=== PATIENT | female | born 1985 | race American Indian/Alaskan Native ===

== ENCOUNTER 2016-07-08 15:25 | Inpatient (IN) | payer SELFPAY ==
[2016-07-08] MEDS ORDERED: TYLENOL PO ONE (16:12)
[2016-07-08 16:29] LABS: Anion Gap 18 mmol/L; BUN/Creatinine Ratio 18.33; Blood Urea Nitrogen 11 mg/dL (7-17); Calcium 8.8 mg/dL (8.4-10.2); Carbon Dioxide 28 mmol/L (22-30); Chloride 102.3 mmol/L (98-107); Glucose 98 mg/dL (65-100); Potassium 3.8 mmol/L (3.6-5.0); Sodium 144 mmol/L (137-145)
[2016-07-08 16:35] LABS: Bacteria,Urine 1+ /HPF (Negative); Bilirubin,Urine NEG (Negative); Blood,Urine NEG (Negative); Ketones,Urine NEG (Negative); Leukocyte Esterase,Urine LG (Negative); Mucus,Urine 2+ /HPF; Nitrite,Urine NEG (Negative); Protein,Urine <15 mg/dL mg/dL (Negative)
[2016-07-08 16:40] LABS: Hematocrit 32.2 % (30.3-42.9); Hemoglobin 10.3 gm/dl (10.1-14.3); Mean Corpuscular HGB Conc 32 % (30-34); Mean Corpuscular Hemoglobin 28 pg (28-32); Mean Corpuscular Volume 88 fl (79-97); Platelet Count 338 K/mm3 (140-440); Red Blood Count 3.65 M/mm3 (3.65-5.03); Red Cell Distribution Width 14.4 % (13.2-15.2); White Blood Count 4.8 K/mm3 (4.5-11.0)
[2016-07-08 17:46] LABS: Basophils % (Manual) 0 % (0.0-1.8); Blastocytes % (Manual) 0 %; Eosinophils % (Manual) 0 % (0.0-4.3)
[2016-07-08 17:47] LABS: Anisocytosis 1+; Hypochromasia 1+; Ovalocytes 1+
[2016-07-08 17:48] LABS: Diff Status Complete; Platelet Estimate Consistent w Auto; Polychromasia Few
--- NOTE | 2016-07-08 20:30 | XRay Report ---
FINAL REPORT PROCEDURE: XR CHEST ROUTINE 2V TECHNIQUE: Two views of the chest are obtained HISTORY: coughing, cp, sob COMPARISON: No prior studies are available for comparison. FINDINGS: Postoperative changes are seen in the right yoon thorax. Mild patchy densities are seen in the left lingula and right middle lobe that may be pneumonia. No pleural effusion or pneumothorax is seen. Heart is normal in size. IMPRESSION: Likely mild pneumonia is seen in the right middle lobe and left lingula. Continued x-ray followup to document resolution is recommended.
[2016-07-08] MEDS ORDERED: NACL 0.9% 1000 ML IV ONE (20:43)
[2016-07-08] MEDS ORDERED: ROCEPHIN/NS 1 GM/50 ML 1 GM/50 ML BAG IV ONE (20:43)
[2016-07-08] MEDS ORDERED: ZITHROMAX PO ONE (20:43)
--- NOTE | 2016-07-08 20:44 | Emergency Department Report ---
ED General Adult HPI - General Chief complaint: Chest Pain Stated complaint: BAD COUGH,CHEST AND NECK PAIN Time Seen by Provider: 07/08/16 20:34 Source: patient, RN notes reviewed Mode of arrival: Ambulatory Limitations: No Limitations - History of Present Illness Initial comments: This is a 30-year-old female. She is previously unknown to me. She does not have a local primary care doctor. She has a past medical history of HIV. She does not have a local infectious disease specialist. She does not know her CD4 count. She does not know her viral load. She is not currently on active retroviral therapy. The patient presents to the ER complaining of shortness of breath, cough, chest and neck pain. This is been going on for a month. It is getting worse. Chest pain is central. It does not radiate to the back, arms and neck. There is no leg pain. There is no leg swelling. No recent trips greater than 4 hours. No recent hospital admissions. Patient also complains of "sinus pressure." -: Gradual, week(s) Location: neck, chest Severity scale (0 -10): 0 Quality: aching Consistency: intermittent Improves with: rest Worsens with: movement Associated Symptoms: chest pain, cough, fever/chills, loss of appetite, shortness of breath, weakness - Related Data Home Medications Medication Instructions Recorded Confirmed Last Taken Azithromycin 600 mg PO 1XW 07/08/16 07/08/16 Unknown Fluconazole 100 mg PO DAILY 07/08/16 07/08/16 Unknown Nystatin SUSP 100,000 1000units PO DAILY 07/08/16 07/08/16 Unknown Stribild Tablet 300 mg PO DAILY 07/08/16 07/08/16 Unknown Previous Rx's Medication Instructions Recorded Last Taken Type Sulfamethoxazole/Trimethoprim 1 each PO Q12HR #20 tablet 07/10/16 Unknown Rx [Bactrim DS TAB] guaiFENesin [Robitussin] 200 mg PO Q4H PRN #30 oral.liqd 07/10/16 Unknown Rx oxyCODONE /ACETAMINOPHEN [Percocet 1 tab PO Q6H PRN #30 tablet 07/10/16 Unknown Rx 5/325 mg] Allergies Allergy/AdvReac Type Severity Reaction Status Date / Time No Known Allergies Allergy Verified 07/08/16 15:41 ED Review of Systems ROS: Stated complaint: BAD COUGH,CHEST AND NECK PAIN Other details as noted in HPI Constitutional: fever, malaise Eyes: denies: vision change ENT: denies: epistaxis Respiratory: cough, shortness of breath Cardiovascular: chest pain Gastrointestinal: as per HPI. denies: vomiting Genitourinary: as per HPI. denies: dysuria Musculoskeletal: back pain Skin: denies: lesions Neurological: weakness Psychiatric: as per HPI ED Past Medical Hx - Past Medical History Hx HIV: Yes - Surgical History Past Surgical History?: No Additional Surgical History: gallstones - Social History Smoking Status: Never Smoker Substance Use Type: None - Medications Home Medications: Home Medications Medication Instructions Recorded Confirmed Last Taken Type Azithromycin 600 mg PO 1XW 07/08/16 07/08/16 Unknown History Fluconazole 100 mg PO DAILY 07/08/16 07/08/16 Unknown History Nystatin SUSP 100,000 1000units PO DAILY 07/08/16 07/08/16 Unknown History Stribild Tablet 300 mg PO DAILY 07/08/16 07/08/16 Unknown History Sulfamethoxazole/Trimethoprim 1 each PO Q12HR #20 tablet 07/10/16 Unknown Rx [Bactrim DS TAB] guaiFENesin [Robitussin] 200 mg PO Q4H PRN #30 oral.liqd 07/10/16 Unknown Rx oxyCODONE /ACETAMINOPHEN [Percocet 1 tab PO Q6H PRN #30 tablet 07/10/16 Unknown Rx 5/325 mg] ED Physical Exam - General Limitations: No Limitations General appearance: alert, in no apparent distress - Head Head exam: Present: atraumatic, normocephalic - Eye Eye exam: Present: normal appearance, EOMI. Absent: nystagmus - ENT ENT exam: Present: normal exam, normal orophraynx, mucous membranes moist, normal external ear exam - Neck Neck exam: Present: normal inspection, full ROM. Absent: tenderness - Respiratory Respiratory exam: Present: wheezes, rhonchi. Absent: respiratory distress - Cardiovascular Cardiovascular Exam: Present: normal rhythm, tachycardia, normal heart sounds. Absent: systolic murmur, diastolic murmur, rubs, gallop - GI/Abdominal GI/Abdominal exam: Present: soft, normal bowel sounds. Absent: distended, tenderness, guarding, rebound, rigid, pulsatile mass - Extremities Exam Extremities exam: Present: normal inspection, full ROM, normal capillary refill. Absent: pedal edema, joint swelling, calf tenderness - Back Exam Back exam: Present: normal inspection, full ROM. Absent: tenderness, CVA tenderness (R), CVA tenderness (L), muscle spasm, paraspinal tenderness, vertebral tenderness - Neurological Exam Neurological exam: Present: alert, oriented X3, other (Extraocular movements intact. Tongue midline. No facial droop. Facial sensation intact to light touch in the V1, V2, V3 distribution bilaterally. 5 and 5 strength in 4 extremities.. Sensation is intact to light touch in 4 extremities.). Absent: motor sensory deficit - Psychiatric Psychiatric exam: Present: normal affect, normal mood - Skin Skin exam: Present: warm, dry, intact, normal color. Absent: rash ED Course Vital Signs 07/08/16 07/08/16 07/08/16 15:45 20:06 20:14 Temperature 100 F H 98 F Pulse Rate 139 H 80 115 H Pulse Rate [ Left Radial] Respiratory 16 16 16 Rate Blood Pressure 124/79 Blood Pressure [Left Arm] Blood Pressure 108/70 108/60 [Left] O2 Sat by Pulse 94 97 96 Oximetry 07/08/16 07/08/16 23:04 23:30 Temperature 97.8 F Pulse Rate Pulse Rate [ 101 H Left Radial] Respiratory 18 Rate Blood Pressure Blood Pressure 112/72 [Left Arm] Blood Pressure [Left] O2 Sat by Pulse 97 98 Oximetry - Reevaluation(s) Reevaluation #1: 07/08/16 21:19 differential diagnosis: Pneumonia, bronchitis, sinusitis, acute coronary syndrome, costochondritis Assessment and plan: 30-year-old female with borderline hypoxia, ABG pending, x- ray the chest him straight in multilobar pneumonia, noncompliant with highly active antiretroviral therapy, borderline fever, tachycardia, borderline sepsis picture. We will treat the patient empirically with 30 mL/kg of IV fluid, ceftriaxone/ azithromycin for presumed community-acquired pneumonia, ABG, will lactic acid, LDH pending. Acetaminophen given. Given multilobar component, immune compromised status, abnormal vital signs, the patient is not suitable for outpatient management. The case is presented to the Hospital physician, Dr. Machado, who accepts the patient to her service. No pulmonary embolus or DVT risk factors, low risk by well's criteria, low risk by KARISHMA score, low risk by heart score ED Medical Decision Making - Lab Data Result diagrams: 07/09/16 04:00 07/09/16 02:30 Vital Signs 07/08/16 07/08/16 07/08/16 15:45 20:06 20:14 Temperature 100 F H 98 F Pulse Rate 139 H 80 115 H Respiratory 16 16 16 Rate Blood Pressure 124/79 Blood Pressure 108/70 108/60 [Left] O2 Sat by Pulse 94 97 96 Oximetry Lab Results 07/08/16 07/08/16 07/08/16 Range/Units 15:58 15:58 16:17 WBC 4.8 (4.5-11.0) K/mm3 RBC 3.65 (3.65-5.03) M/mm3 Hgb 10.3 (10.1-14.3) gm/dl Hct 32.2 (30.3-42.9) % MCV 88 (79-97) fl MCH 28 (28-32) pg MCHC 32 (30-34) % RDW 14.4 (13.2-15.2) % Plt Count 338 (140-440) K/mm3 Add Manual Diff Complete Total Counted 100 Seg Neuts % (Manual) 59.0 (40.0-70.0) % Band Neutrophils % 12.0 % Lymphocytes % (Manual) 15.0 (13.4-35.0) % Reactive Lymphs % (Man) 1.0 % Monocytes % (Manual) 13.0 H (0.0-7.3) % Eosinophils % (Manual) 0 (0.0-4.3) % Basophils % (Manual) 0 (0.0-1.8) % Metamyelocytes % 0 % Myelocytes % 0 % Promyelocytes % 0 % Blast Cells % 0 % Nucleated RBC % Not Reportable Seg Neutrophils # Man 2.8 (1.8-7.7) K/mm3 Band Neutrophils # 0.6 K/mm3 Lymphocytes # (Manual) 0.7 L (1.2-5.4) K/mm3 Abs React Lymphs (Man) 0.0 K/mm3 Monocytes # (Manual) 0.6 (0.0-0.8) K/mm3 Eosinophils # (Manual) 0.0 (0.0-0.4) K/mm3 Basophils # (Manual) 0.0 (0.0-0.1) K/mm3 Metamyelocytes # 0.0 K/mm3 Myelocytes # 0.0 K/mm3 Promyelocytes # 0.0 K/mm3 Blast Cells # 0.0 K/mm3 WBC Morphology Not Reportable Hypersegmented Neuts Not Reportable Hyposegmented Neuts Not Reportable Hypogranular Neuts Not Reportable Smudge Cells Not Reportable Toxic Granulation Not Reportable Toxic Vacuolation Not Reportable Dohle Bodies Not Reportable Pelger-Huet Anomaly Not Reportable [place] Rods Not Reportable Platelet Estimate Consistent w auto Clumped Platelets Not Reportable Plt Clumps, EDTA Not Reportable Large Platelets Not Reportable Giant Platelets Not Reportable Platelet Satelliting Not Reportable Plt Morphology Comment Not Reportable RBC Morphology Not Reportable Dimorphic RBCs Not Reportable Polychromasia Few Hypochromasia 1+ Poikilocytosis Not Reportable Anisocytosis 1+ Microcytosis Not Reportable Macrocytosis Not Reportable Spherocytes Not Reportable Pappenheimer Bodies Not Reportable Sickle Cells Not Reportable Target Cells Not Reportable Tear Drop Cells Not Reportable Ovalocytes 1+ Helmet Cells Not Reportable [place] Bodies Not Reportable [place] Rings Not Reportable [place] Cells Not Reportable Bite Cells Not Reportable Crenated Cell Not Reportable Elliptocytes Not Reportable Acanthocytes (Spur) Not Reportable Rouleaux Not Reportable Hemoglobin C Crystals Not Reportable Schistocytes Not Reportable Malaria parasites Not Reportable Alan Bodies Not Reportable Hem Pathologist Commnt No Sodium 144 (137-145) mmol/L Potassium 3.8 (3.6-5.0) mmol/L Chloride 102.3 (98-107) mmol/L Carbon Dioxide 28 (22-30) mmol/L Anion Gap 18 mmol/L BUN 11 (7-17) mg/dL Creatinine 0.6 L (0.7-1.2) mg/dL Estimated GFR > 60 ml/min BUN/Creatinine Ratio 18.33 % Glucose 98 (65-100) mg/dL Calcium 8.8 (8.4-10.2) mg/dL Troponin T < 0.010 (0.00-0.029) ng/mL Urine Color Yellow (Yellow) Urine Turbidity Clear (Clear) Urine pH 6.0 (5.0-7.0) Ur Specific [place] 1.026 (1.003-1.030) Urine Protein <15 mg/dl (Negative) mg/dL Urine Glucose (UA) Neg (Negative) mg/dL Urine Ketones Neg (Negative) mg/dL Urine Blood Neg (Negative) Urine Nitrite Neg (Negative) Urine Bilirubin Neg (Negative) Urine Urobilinogen 4.0 (<2.0) mg/dL Ur Leukocyte Esterase Lg (Negative) Urine WBC (Auto) 13.0 H (0.0-6.0) /HPF Urine RBC (Auto) 12.0 (0.0-6.0) /HPF U Epithel Cells (Auto) 6.0 (0-13.0) /HPF Urine Bacteria (Auto) 1+ (Negative) /HPF Urine Mucus 2+ /HPF Urine HCG, Qual Negative (Negative) 07/08/16 Range/Units 18:44 WBC (4.5-11.0) K/mm3 RBC (3.65-5.03) M/mm3 Hgb (10.1-14.3) gm/dl Hct (30.3-42.9) % MCV (79-97) fl MCH (28-32) pg MCHC (30-34) % RDW (13.2-15.2) % Plt Count (140-440) K/mm3 Add Manual Diff Total Counted Seg Neuts % (Manual) (40.0-70.0) % Band Neutrophils % % Lymphocytes % (Manual) (13.4-35.0) % Reactive Lymphs % (Man) % Monocytes % (Manual) (0.0-7.3) % Eosinophils % (Manual) (0.0-4.3) % Basophils % (Manual) (0.0-1.8) % Metamyelocytes % % Myelocytes % % Promyelocytes % % Blast Cells % % Nucleated RBC % Seg Neutrophils # Man (1.8-7.7) K/mm3 Band Neutrophils # K/mm3 Lymphocytes # (Manual) (1.2-5.4) K/mm3 Abs React Lymphs (Man) K/mm3 Monocytes # (Manual) (0.0-0.8) K/mm3 Eosinophils # (Manual) (0.0-0.4) K/mm3 Basophils # (Manual) (0.0-0.1) K/mm3 Metamyelocytes # K/mm3 Myelocytes # K/mm3 Promyelocytes # K/mm3 Blast Cells # K/mm3 WBC Morphology Hypersegmented Neuts Hyposegmented Neuts Hypogranular Neuts Smudge Cells Toxic Granulation Toxic Vacuolation Dohle Bodies Pelger-Huet Anomaly [place] Rods Platelet Estimate Clumped Platelets Plt Clumps, EDTA Large Platelets Giant Platelets Platelet Satelliting Plt Morphology Comment RBC Morphology Dimorphic RBCs Polychromasia Hypochromasia Poikilocytosis Anisocytosis Microcytosis Macrocytosis Spherocytes Pappenheimer Bodies Sickle Cells Target Cells Tear Drop Cells Ovalocytes Helmet Cells [place] Bodies [place] Rings [place] Cells Bite Cells Crenated Cell Elliptocytes Acanthocytes (Spur) Rouleaux Hemoglobin C Crystals Schistocytes Malaria parasites Alan Bodies Hem Pathologist Commnt Sodium (137-145) mmol/L Potassium (3.6-5.0) mmol/L Chloride (98-107) mmol/L Carbon Dioxide (22-30) mmol/L Anion Gap mmol/L BUN (7-17) mg/dL Creatinine (0.7-1.2) mg/dL Estimated GFR ml/min BUN/Creatinine Ratio % Glucose (65-100) mg/dL Calcium (8.4-10.2) mg/dL Troponin T < 0.010 (0.00-0.029) ng/mL Urine Color (Yellow) Urine Turbidity (Clear) Urine pH (5.0-7.0) Ur Specific [place] (1.003-1.030) Urine Protein (Negative) mg/dL Urine Glucose (UA) (Negative) mg/dL Urine Ketones (Negative) mg/dL Urine Blood (Negative) Urine Nitrite (Negative) Urine Bilirubin (Negative) Urine Urobilinogen (<2.0) mg/dL Ur Leukocyte Esterase (Negative) Urine WBC (Auto) (0.0-6.0) /HPF Urine RBC (Auto) (0.0-6.0) /HPF U Epithel Cells (Auto) (0-13.0) /HPF Urine Bacteria (Auto) (Negative) /HPF Urine Mucus /HPF Urine HCG, Qual (Negative) - EKG Data -: EKG Interpreted by Sd EKG shows normal: sinus rhythm Rate: tachycardia - EKG Data When compared to previous EKG there are: previous EKG unavailable 07/08/16 21:21 sinus tachycardia, 134 beats per minute, poor R wave progression , nonspecific T-wave abnormality, not morphologically consistent with stemi - Radiology Data Radiology results: report reviewed, image reviewed xr chest: multilobar pneumonia Critical care attestation.: If time is entered above; I have spent that time in minutes in the direct care of this critically ill patient, excluding procedure time. ED Disposition Clinical Impression: Pneumonia Qualifiers: Aspiration pneumonia type: unspecified Laterality: bilateral Lung location: unspecified part of lung Disposition: OP ADMITTED IP TO THIS HOSP Is pt being admited?: Yes Does the pt Need Aspirin: Yes Condition: Good
[2016-07-08 21:29] LABS: ISTAT Base Excess -1; ISTAT HCO3 23.6; ISTAT PCO2 37.1 (35-45); ISTAT PH 7.413 (7.35-7.45); ISTAT PO2 87 (80-105); ISTAT SO2 97; ISTAT TCO2 25
[2016-07-08] MEDS ORDERED: DULCOLAX PR PRN (21:50)
[2016-07-08] MEDS ORDERED: ZOFRAN IV PRN (21:50)
[2016-07-08] MEDS ORDERED: MILK OF MAGNESIA PO PRN (21:50)
[2016-07-08] MEDS ORDERED: TYLENOL PO PRN (21:50)
--- NOTE | 2016-07-08 21:56 | History and Physical Report ---
History of Present Illness Date of examination: 07/08/16 History of present illness: 30 year old woman with history of HIV, unknown CD4 count, off medications for 1 year comes emergency room with complaint of cough productive of green-yellow phlegm for one month, shortness of breath, fever Patient denies chest pain, palpitation abdominal pain, hematochezia, dysuria, frequency, focal weakness, dysarthria, fever chills, polydipsia polyuria, hot or cold intolerance, easy bruisability, or rash or bleeding from mucosal membrane, rhinorrhea, epistaxis, earache, tinnitus, blurry vision, eye discharge , anxiety, depression. Other review of systems negative PAST SURGICAL HISTORY: None SOCIAL HISTORY: Denies alcohol, tobacco, drugs FAMILY HISTORY: Hypertension Medications and Allergies Allergies Allergy/AdvReac Type Severity Reaction Status Date / Time No Known Allergies Allergy Verified 07/08/16 15:41 Home Medications Medication Instructions Recorded Confirmed Last Taken Type Azithromycin 600 mg PO 1XW 07/08/16 07/08/16 Unknown History Fluconazole 100 mg PO DAILY 07/08/16 07/08/16 Unknown History Nystatin SUSP 100,000 1000units PO DAILY 07/08/16 07/08/16 Unknown History Stribild Tablet 300 mg PO DAILY 07/08/16 07/08/16 Unknown History Active Meds: Active Medications Acetaminophen (Tylenol) 650 mg PO Q4H PRN PRN Reason: Pain MILD(1-3)/Fever >100.5/[place]OR[place]INO Bisacodyl (Dulcolax) 10 mg HI QDAY PRN PRN Reason: Constipation unrelieved by MOM Enoxaparin Sodium (Lovenox) 40 mg SUB-Q QDAY [facility] Azithromycin 500 mg/ Sodium (Chloride) 250 mls @ 250 mls/hr IV Q24HR SOSA PRN Reason: Protocol Ceftriaxone Sodium (Rocephin/Ns 1 Gm/50 Ml) 1 gm in 50 mls @ 100 mls/hr IV Q24HR SOSA PRN Reason: Protocol Magnesium Hydroxide (Milk Of Magnesia) 30 ml PO Q4H PRN PRN Reason: Constipation Ondansetron HCl (Zofran) 4 mg IV Q8H PRN PRN Reason: N/V unrelieved by Reglan Oxycodone/Acetaminophen (Percocet 5/325) 1 tab PO Q6H PRN PRN Reason: Pain, Moderate (4-6) Exam - Physical Exam Narrative exam: Gen. appearance: Patient lying in bed, no apparent distress HEENT: Normocephalic, atraumatic, pupils equally round and reactive to light, extraocular movement intact, and no sclericterus,. No JVD or thyromegaly or nodule,neck supple, no carotid bruit ,mucous membranes moist, no exudate or erythema Heart: S1, S2, regular rate and rhythm Lungs: Clear to auscultation bilaterally, breathing comfortable Abdomen: Positive bowel sounds, nontender, nondistended, no organomegaly Extremity: No edema, cyanosis, clubbing Skin: No rash, nodules, warm, dry Neuro: Oriented 3, cranial nerves II-12 intact, speech is fluent, motor and sensory intact - Constitutional Vitals: Temp Pulse Resp BP Pulse Ox 98 F 115 H 16 108/60 96 07/08/16 20:14 07/08/16 20:14 07/08/16 20:14 07/08/16 20:14 07/08/16 20:14 Results - Labs CBC & Chem 7: 07/09/16 04:00 07/09/16 02:30 Labs: Abnormal lab results 07/08/16 07/08/16 07/08/16 Range/Units 15:58 15:58 16:17 Monocytes % (Manual) 13.0 H (0.0-7.3) % Lymphocytes # (Manual) 0.7 L (1.2-5.4) K/mm3 Creatinine 0.6 L (0.7-1.2) mg/dL Urine WBC (Auto) 13.0 H (0.0-6.0) /HPF - Imaging and Cardiology Chest x-ray: image reviewed Assessment and Plan Sepsis Community-acquired pneumonia UTI HIV Admit to medicine Start IV Rocephin, azithromycin Follow cultures, start DVT prophylaxis
[2016-07-09] MEDS ORDERED: ROBITUSSIN PO PRN (00:01)
[2016-07-09] MEDS: PERCOCET 5/325 PO PRN ×2 (01:53→20:15)
[2016-07-09 02:48] LABS: Hematocrit 30.7 % (30.3-42.9); Hemoglobin 9.5 gm/dl (10.1-14.3); Mean Corpuscular HGB Conc 31 % (30-34); Mean Corpuscular Hemoglobin 28 pg (28-32); Mean Corpuscular Volume 89 fl (79-97); Platelet Count 266 K/mm3 (140-440); Red Blood Count 3.44 M/mm3 (3.65-5.03); Red Cell Distribution Width 14.5 % (13.2-15.2); White Blood Count 3.3 K/mm3 (4.5-11.0)
[2016-07-09 03:00] LABS: Blood Urea Nitrogen 9 mg/dL (7-17); Calcium 7.6 mg/dL (8.4-10.2); Carbon Dioxide 21 mmol/L (22-30); Chloride 105.4 mmol/L (98-107); Glucose 94 mg/dL (65-100); Potassium 3.4 mmol/L (3.6-5.0); Sodium 139 mmol/L (137-145)
[2016-07-09 03:03] LABS: Anion Gap 16 mmol/L
[2016-07-09 04:02] LABS: Basophils % (Manual) 0 % (0.0-1.8); Blastocytes % (Manual) 0 %
[2016-07-09 04:04] LABS: Anisocytosis 1+; Diff Status Complete
--- NOTE | 2016-07-09 08:51 | Progress Note ---
Assessment and Plan Assessment and plan: 30-year-old woman with past medical history of HIV, unknown viral load and CD4 counts. Presents with coughs productive sputum and subjective fevers Sepsis continue abx, continue sepsis protocol, due to CAP and UTI Community-acquired pneumonia IV abx UTI fup urine cx, iv abx HIV obtain cd4 count and viral load she is not on retrovirals, denies AIDs defining illness History Interval history: She continues to have productive cough, she feels better, sputum is thick and yellow. Denies fever overnight Hospitalist Physical - Physical exam Narrative exam: General: Patient appears well in no distress HEENT: MMM, EOMI cardiac: S1-S2 heard lungs: Crackles right lower lung abdomen: soft, nontender, nondistended bowel sounds positive extremities: no edema clubbing or cyanosis Skin: no rash or lesion Neuro: no focal deficit Psych: appropriate behavior and mood, cognition intact - Constitutional Vitals: Temp Pulse Resp BP Pulse Ox 98 F 100 H 18 104/64 99 07/09/16 08:00 07/09/16 08:00 07/09/16 08:00 07/09/16 08:00 07/09/16 08:00 Results - Labs CBC & Chem 7: 07/09/16 04:00 07/09/16 02:30 Labs: Laboratory Last Values WBC 3.3 K/mm3 (4.5-11.0) L 07/09/16 04:00 RBC 3.44 M/mm3 (3.65-5.03) L 07/09/16 04:00 Hgb 9.5 gm/dl (10.1-14.3) L 07/09/16 04:00 Hct 30.7 % (30.3-42.9) 07/09/16 04:00 MCV 89 fl (79-97) 07/09/16 04:00 MCH 28 pg (28-32) 07/09/16 04:00 MCHC 31 % (30-34) 07/09/16 04:00 RDW 14.5 % (13.2-15.2) 07/09/16 04:00 Plt Count 266 K/mm3 (140-440) 07/09/16 04:00 Add Manual Diff Complete 07/09/16 04:00 Total Counted 100 07/09/16 04:00 Seg Neuts % (Manual) 80.0 % (40.0-70.0) H 07/09/16 04:00 Band Neutrophils % 1.0 % 07/09/16 04:00 Lymphocytes % (Manual) 10.0 % (13.4-35.0) L 07/09/16 04:00 Reactive Lymphs % (Man) 0 % 07/09/16 04:00 Monocytes % (Manual) 6.0 % (0.0-7.3) 07/09/16 04:00 Eosinophils % (Manual) 1.0 % (0.0-4.3) 07/09/16 04:00 Basophils % (Manual) 0 % (0.0-1.8) 07/09/16 04:00 Metamyelocytes % 1.0 % 07/09/16 04:00 Myelocytes % 1.0 % 07/09/16 04:00 Promyelocytes % 0 % 07/09/16 04:00 Blast Cells % 0 % 07/09/16 04:00 Nucleated RBC % Not Reportable 07/09/16 04:00 Seg Neutrophils # Man 2.6 K/mm3 (1.8-7.7) 07/09/16 04:00 Band Neutrophils # 0.0 K/mm3 07/09/16 04:00 Lymphocytes # (Manual) 0.3 K/mm3 (1.2-5.4) L 07/09/16 04:00 Abs React Lymphs (Man) 0.0 K/mm3 07/09/16 04:00 Monocytes # (Manual) 0.2 K/mm3 (0.0-0.8) 07/09/16 04:00 Eosinophils # (Manual) 0.0 K/mm3 (0.0-0.4) 07/09/16 04:00 Basophils # (Manual) 0.0 K/mm3 (0.0-0.1) 07/09/16 04:00 Metamyelocytes # 0.0 K/mm3 07/09/16 04:00 Myelocytes # 0.0 K/mm3 07/09/16 04:00 Promyelocytes # 0.0 K/mm3 07/09/16 04:00 Blast Cells # 0.0 K/mm3 07/09/16 04:00 WBC Morphology Not Reportable 07/09/16 04:00 Hypersegmented Neuts Not Reportable 07/09/16 04:00 Hyposegmented Neuts Not Reportable 07/09/16 04:00 Hypogranular Neuts Not Reportable 07/09/16 04:00 Smudge Cells Not Reportable 07/09/16 04:00 Toxic Granulation Not Reportable 07/09/16 04:00 Toxic Vacuolation Not Reportable 07/09/16 04:00 Dohle Bodies Not Reportable 07/09/16 04:00 Pelger-Huet Anomaly Not Reportable 07/09/16 04:00 Bronwyn Rods Not Reportable 07/09/16 04:00 Platelet Estimate Appears normal 07/09/16 04:00 Clumped Platelets Not Reportable 07/09/16 04:00 Plt Clumps, EDTA Not Reportable 07/09/16 04:00 Large Platelets Not Reportable 07/09/16 04:00 Giant Platelets Not Reportable 07/09/16 04:00 Platelet Satelliting Not Reportable 07/09/16 04:00 Plt Morphology Comment Not Reportable 07/09/16 04:00 RBC Morphology Not Reportable 07/09/16 04:00 Dimorphic RBCs Not Reportable 07/09/16 04:00 Polychromasia Not Reportable 07/09/16 04:00 Hypochromasia Not Reportable 07/09/16 04:00 Poikilocytosis Not Reportable 07/09/16 04:00 Anisocytosis 1+ 07/09/16 04:00 Microcytosis Not Reportable 07/09/16 04:00 Macrocytosis Not Reportable 07/09/16 04:00 Spherocytes Not Reportable 07/09/16 04:00 Pappenheimer Bodies Not Reportable 07/09/16 04:00 Sickle Cells Not Reportable 07/09/16 04:00 Target Cells Not Reportable 07/09/16 04:00 Tear Drop Cells Not Reportable 07/09/16 04:00 Ovalocytes Not Reportable 07/09/16 04:00 Helmet Cells Not Reportable 07/09/16 04:00 [place] Bodies Not Reportable 07/09/16 04:00 [place] Rings Not Reportable 07/09/16 04:00 [place] Cells Not Reportable 07/09/16 04:00 Bite Cells Not Reportable 07/09/16 04:00 Crenated Cell Not Reportable 07/09/16 04:00 Elliptocytes Not Reportable 07/09/16 04:00 Acanthocytes (Spur) Not Reportable 07/09/16 04:00 Rouleaux Not Reportable 07/09/16 04:00 Hemoglobin C Crystals Not Reportable 07/09/16 04:00 Schistocytes Not Reportable 07/09/16 04:00 Malaria parasites Not Reportable 07/09/16 04:00 Alan Bodies Not Reportable 07/09/16 04:00 Hem Pathologist Commnt No 07/09/16 04:00 POC ABG pH 7.413 (7.35-7.45) 07/08/16 21:22 POC ABG pCO2 37.1 (35-45) 07/08/16 21:22 POC ABG pO2 87 (80-105) 07/08/16 21:22 POC ABG HCO3 23.6 07/08/16 21:22 POC ABG Total CO2 25 07/08/16 21:22 POC ABG O2 Sat 97 07/08/16 21:22 POC ABG Base Excess -1 07/08/16 21:22 FiO2 3 % 07/08/16 21:22 Sodium 139 mmol/L (137-145) 07/09/16 02:30 Potassium 3.4 mmol/L (3.6-5.0) L 07/09/16 02:30 Chloride 105.4 mmol/L (98-107) 07/09/16 02:30 Carbon Dioxide 21 mmol/L (22-30) L D 07/09/16 02:30 Anion Gap 16 mmol/L 07/09/16 02:30 BUN 9 mg/dL (7-17) 07/09/16 02:30 Creatinine 0.4 mg/dL (0.7-1.2) L 07/09/16 02:30 Estimated GFR > 60 ml/min 07/09/16 02:30 BUN/Creatinine Ratio 22.50 % 07/09/16 02:30 Glucose 94 mg/dL (65-100) 07/09/16 02:30 Lactic Acid 0.70 mmol/L (0.7-2.0) 07/09/16 02:30 Calcium 7.6 mg/dL (8.4-10.2) L 07/09/16 02:30 Lactate Dehydrogenase 371 units/L (91-180) H 07/08/16 21:08 Troponin T < 0.010 ng/mL (0.00-0.029) 07/08/16 21:59 Urine Color Yellow (Yellow) 07/08/16 16:17 Urine Turbidity Clear (Clear) 07/08/16 16:17 Urine pH 6.0 (5.0-7.0) 07/08/16 16:17 Ur Specific [place] 1.026 (1.003-1.030) 07/08/16 16:17 Urine Protein <15 mg/dl mg/dL (Negative) 07/08/16 16:17 Urine Glucose (UA) Neg mg/dL (Negative) 07/08/16 16:17 Urine Ketones Neg mg/dL (Negative) 07/08/16 16: Urine Blood Neg (Negative) 07/08/16 16:17 Urine Nitrite Neg (Negative) 07/08/16 16:17 Urine Bilirubin Neg (Negative) 07/08/16 16:17 Urine Urobilinogen 4.0 mg/dL (<2.0) 07/08/16 16:17 Ur Leukocyte Esterase Lg (Negative) 07/08/16 16:17 Urine WBC (Auto) 13.0 /HPF (0.0-6.0) H 07/08/16 16:17 Urine RBC (Auto) 12.0 /HPF (0.0-6.0) 07/08/16 16:17 U Epithel Cells (Auto) 6.0 /HPF (0-13.0) 07/08/16 16:17 Urine Bacteria (Auto) 1+ /HPF (Negative) 07/08/16 16:17 Urine Mucus 2+ /HPF 07/08/16 16:17 Urine HCG, Qual Negative (Negative) 07/08/16 16:17
[2016-07-09] MEDS: ROCEPHIN/NS 1 GM/50 ML 1 GM/50 ML BAG IV SCH (10:18)
[2016-07-09] MEDS: LOVENOX SUB-Q SCH (10:19)
[2016-07-09] MEDS: ZITHROMAX 500 MG in NACL 0.9% 250ML 250 ML IV SCH (11:55)
--- NOTE | 2016-07-09 18:02 | Admit Criteria Form ---
Admission Criteria Documentation: PNEUMONIA, COMMUNITY ACQUIRED Clinical Indications for Admission to Inpatient Care ( Place 'X' for any and all applicable criteria): Admission is indicated for ANY ONE of the following (1)(2)(3): [ ]I. Hypoxemia indicated by ANY ONE of the following: [ ]a) Oxygen saturation less than 90% while breathing room air [ ]b) PO2 less than 60 mm Hg (8.0 kPa) while breathing room air [ ]c) Chronic lung disease with significant deterioration from baseline oxygenation [ ]II. Appropriate diagnostic testing and treatment unavailable in outpatient or recovery facility (eg,testing or infection control measures unavailable(10) [ ]III. Moderate-risk or high-risk category patients (Pneumonia Severity Index (PSI) class IV or V, or CURB-65 score of 3 or greater). [ ]IV. Outpatient treatment failure as indicated by ANY ONE of the following(9) : [ ]a) Failure to respond to antibiotic (eg, resistant organism) [ ]b) Clinically significant adverse effects from medication (eg, vomiting) [ ]c) Complications of pneumonia (eg, empyema, bacteremia) [ ]d) Significant worsening of comorbid cond necessitating inpatient care (eg, chronic heart failure) [ ]V. Intermediate-risk category patients (eg, PSI class III or CURB-65 score 2) who do not improve with initial therapy and observation. [ X]. Immunocompromised patients (eg, AIDS, chronic steroid use) at moderate or high risk based on clinical evaluation. [ ]VII. Complicated pleural effusions (eg, exudative, loculated) [ ]VIII.Hemodynamic instability [ ] IX. Altered mental status that is severe or persistent. [ ]X. Dehydration that is severe or persistent. [ ]XI. Bacteremia [ ]XII. Respiratory finding (eg. tachypnea) that do not respond to outpatient or observation care treatment Extended stay beyond goal length of stay may be needed for (20) [ ]a) Unclear diagnosis [ ]b) Pleural disease [ ]c) Severe pneumonia or treatment failure (25 [ ]d) Respiratory failure (anticipate invasive or noninvasive ventilatory support) [ ]e) Abnormal serum electrolytes (serum Na concentration less than 135 mEq/L (mmol/L) (32)(33) [ ]f) Clinically significant comorbid illness (eg, heart failure, atrial fibrillation with rapid heart rate, alcohol withdrawal, renal insufficiency)(34)(35) [ ]g) Comorbid acute exacerbation of COPD(36) [ ]h) Concomitant diagnosis of malignancy that may be associated with malnutrition, immunologic impairment, or bronchial obstruction. [ ]i) Concomitant altered mental status [ ]j) Culture-identified Gram-negative or antibiotic-resistant organism (eg, Pseudomonas, methicillin-resistant Staphylococcus aureus)(30) [ ]k) Healthcare-associated pneumonia The original [employer] content created by [employer] has been revised. The portions of the content which have been revised are identified through the use of italic text or in bold, and [facility] has neither reviewed nor approved the modified material. All other unmodified content is copyright [employer]. Please see references footnoted in the original [facility] edition 2016 Admission Criteria Met: Yes
[2016-07-10] MEDS: ROCEPHIN/NS 1 GM/50 ML 1 GM/50 ML BAG IV SCH (09:22)
[2016-07-10] MEDS: LOVENOX SUB-Q SCH (09:29)
[2016-07-10] MEDS: ZITHROMAX 500 MG in NACL 0.9% 250ML 250 ML IV SCH (10:31)
--- NOTE | 2016-07-10 12:14 | Discharge Summary ---
Providers - Providers Date of Admission: 07/08/16 21:50 Date of discharge: 07/10/16 Attending physician: JERROD CUNHA MD Primary care physician: WILL RYAN MD Hospitalization Condition: Good Hospital course: Patient 30-year-old female with HIV unknown CD4 count present with community- acquired pneumonia fever cough. Patient started on IV anabiotic since azithromycin defervesced well. Fever curve resolved to normal patient felt much better with IV anabiotic's and IV volume replacement. Patient had pneumonia of the right lower lobe due to infectious organism. Treated stable for discharge. Patient was feeling much better. Patient did not have any 80s defining illness was not on any retroviral medications blood cultures returned with no growth. Stable for discharge. We'll be discharged home with Bactrim 10 days. Disposition: DISCHARGED TO HOME OR SELFCARE - Discharge Diagnoses (1) Pneumonia Status: Acute Qualifiers: Pneumonia type: P Aspiration pneumonia type: unspecified Laterality: bilateral Lung location: unspecified part of lung Core Measure Documentation - Palliative Care Palliative Care/ Comfort Measures: Not Applicable - Core Measures Any of the following diagnoses?: none Exam - Constitutional Vitals: Temp Pulse Resp BP Pulse Ox 98.3 F 112 H 16 104/62 96 07/10/16 08:00 07/10/16 08:00 07/10/16 08:00 07/10/16 08:00 07/10/16 08:56 General appearance: Present: no acute distress, well-nourished - EENT Eyes: Present: PERRL ENT: hearing intact, clear oral mucosa - Neck Neck: Present: supple, normal ROM - Respiratory Respiratory effort: normal Respiratory: bilateral: CTA - Cardiovascular Heart Sounds: Present: S1 & S2. Absent: rub, click - Extremities Extremities: pulses symmetrical, No edema Peripheral Pulses: within normal limits - Abdominal General gastrointestinal: Present: soft, non-tender, non-distended, normal bowel sounds - Integumentary Integumentary: Present: clear, warm, dry - Musculoskeletal Musculoskeletal: gait normal, strength equal bilaterally - Psychiatric Psychiatric: appropriate mood/affect, intact judgment & insight - Neurologic Neurologic: CNII-XII intact, moves all extremities Plan Activity: no restrictions Weight Bearing Status: Non-Weight Bearing Diet: regular Follow up with: PRIMARY CAREMD [Primary Care Provider] - 3-5 Days Prescriptions: guaiFENesin [Robitussin] 200 mg PO Q4H PRN #30 oral.liqd PRN Reason: Cough oxyCODONE /ACETAMINOPHEN [Percocet 5/325 mg] 1 tab PO Q6H PRN #30 tablet PRN Reason: Pain, Moderate (4-6) Sulfamethoxazole/Trimethoprim [Bactrim DS TAB] 1 each PO Q12HR #20 tablet
[2016-07-10 15:45] VITALS: BP 112/60
[2016-07-10] MEDS ORDERED: BACTRIM DS PO SCH (22:00)
[2016-07-12 06:29] LABS: HIV-1 RNA QN PCR 6.16 Log cps/mL (<1.30)
== END 2016-07-10 16:26 | disposition home or self-care (01) | DRG 871 ==
LOC: ED 15:25 → 3A 21:50
PROVIDERS: ADMIT Internal Medicine; ATTEND Internal Medicine
DX: A41.9 Sepsis, unspecified organism (principal); J18.9 Pneumonia, unspecified organism; N39.0 Urinary tract infection, site not specified; Z82.49 Family history of ischemic heart disease and other diseases of the circulatory system
CPT/HCPCS: 36415; 71020; 80048; 81001; 81025; 82024; 82140; 82803; 83615; 84484; 85007; 85025; 87040; 87086; 87536; 93005; 93010; 94760; 96365; J0456; J0696; J1650; J7030; J7050